=== PATIENT | male | born 2000 | race Caucasian/White ===

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

== ENCOUNTER 2022-06-10 17:02 | Emergency (ER) | payer BC, SELFPAY ==
[2022-06-10 17:05] VITALS: BP 169/84; PULSE 83; RESP 20; TEMP 36.8; O2SAT 100; BMI 41.3
[2022-06-10 17:11] VITALS: BP 169/84; PULSE 87; O2SAT 97
--- NOTE | 2022-06-10 17:17 | XR_ITS ---
PROCEDURE INFORMATION: Exam: XR Right Foot Exam date and time: 06/10/2022 5:26 PM Age: 21 years old Clinical indication: Injury or trauma; Other: Smashed foot with carlift; Blunt trauma; Right TECHNIQUE: Imaging protocol: Radiologic exam of the Right foot. Views: 3 or more views. COMPARISON: CR XR ANKLE RT MIN 3V 10/13/2020 2:32 PM FINDINGS: Bones/joints: There is no evidence of acute fracture or dislocation. Minor degenerative changes involve the 1st MTP joint. Joint spaces appear preserved. Soft tissues: There is minor soft tissue fullness involving the soft tissues of the midfoot, most noted dorsally. No subcutaneous emphysema or radiopaque foreign bodies. IMPRESSION: 1. No acute posttraumatic osseous injury. 2. Mild dorsal midfoot soft tissue edema.
[2022-06-10 17:31] VITALS: BP 158/96; PULSE 104; O2SAT 98
--- NOTE | 2022-06-10 17:34 | PC.NURSE ---
PT GONE TO RADIOLOGY
--- NOTE | 2022-06-10 17:35 | PC.NURSE ---
pt to radiology via wheelchair
--- NOTE | 2022-06-10 17:38 | HMH.EDGENADL ---
Discharge Plan Disposition Patient Disposition: Home, Self-Care Condition: Good Prescriptions Prescriptions: No Action skiguxllknqkfwz-erjglcxjd-HL 118 ML syrup 5 - 10 ml PO Q46H PRN (Reason: Cough) Qty: 200 0RF prednisone 10 MG tablet 10 mg PO BID 3 Days Qty: 6 0RF amoxicillin 500 MG tablet 500 mg PO TID 10 Days Qty: 30 0RF teyhuzafobxbhec-gfglcjnoh-BV 118 ML syrup 5 ml PO Q6HP PRN (Reason: Cough) Qty: 240 0RF Referrals Follow up/Referrals: Eloy Mendoza JR, MD [Physician] - See instructions Robert Sabillon MD [Primary Care Provider] - See instructions Activity Restrictions/Add. Instructions Additional Instructions/Restrictions: You were evaluated in the emergency department today. Please take Tylenol and ibuprofen at home as needed for pain. Rest, ice, and elevate your foot is much as possible. Follow-up outpatient with orthopedics as well as her primary care provider. We are providing you with the contact information for Dr. Mendoza. You may bear weight on your foot as tolerated. Limit activity until your pain is started to improve. Return to the emergency department for any new or worsening symptoms. Clinical Impressions Clinical Impression: Crush injury of right foot Qualifiers: Encounter type: initial encounter Qualified Code(s): S97.81XA - Crushing injury of right foot, initial encounter Instructions Patient Instructions: DI for Foot Pain, DI for Foot Sprain Discharge ED Provider: Charla Guo General Adult HPI General Chief complaint: PAIN Stated complaint: AO02/13@1500 Injured R Foot Time Seen by Provider: 06/10/22 17:22 Mode of Arrival: Ambulatory Source of Information: Patient Limitations: No Limitations Description of Symptoms (Recalled from ER Triage Doc. by RN): PT STATES HE SMASHED HIS R FOOT WITH A CARLIFT AROUND 3PM, REPORTS SOME NUMBNESS ON THE TOP OF HIS FOOT, ABLE TO MOVE TOES, BRUISING NOTED ON TOP OF FOOT History of Present Illness HPI narrative: This patient is a 21-year-old male who denies significant past medical history presenting to the emergency department for evaluation with concern for right foot injury. He states that he smashed his right foot with a cartilage around 3:00 PM. He states that he has pain with ambulating, but he is still able to bear weight. No other injuries noted. His pain is currently a 3 out of 10 and worse at the top and medial aspect of his right foot. No significant numbness or tingling. He was well prior to this. Related Data Previous Rx's Medication Instructions Recorded vdkziimseocywvj-fuoeoooixurpgqa-UX 5 - 10 ml PO Q46H PRN Cough #200 mL 05/10/21 2 mg-30 mg-10 mg/5 mL oral syrup amoxicillin 500 mg tablet 500 mg PO TID 10 days #30 tabs 06/28/21 lkcltiwetqcemlw-kyotkrbklntnitx-GY 5 ml PO Q6HP PRN Cough #240 mL 06/28/21 2 mg-30 mg-10 mg/5 mL oral syrup prednisone 10 mg tablet 10 mg PO BID 3 days #6 tabs 06/28/21 Allergies Allergy/AdvReac Type Severity Reaction Status Date / Time ibuprofen Allergy Verified 12/15/19 22:37 Pertussis Vaccines Allergy Verified 12/15/19 22:37 Sulfa (Sulfonamide Allergy Verified 12/15/19 22:37 Antibiotics) [facility] Disclaimer: The information contained in this section may have been updated after the patient was seen, as this information can be updated by other users. Social History Smoking Status: Never smoker alcohol intake: never current occupational status: other Travel in the last 8 weeks: None household members: family housing: house ROS Obtained: Yes All systems reviewed & no additional complaints except as documented 14 point review of systems obtained and negative except as mentioned in HPI. Physical Exam General General appearance: alert and in no apparent distress Head Head exam: atraumatic and normocephalic Eye Eye exam: Present normal appearance, PERRL and EOMI ENT ENT exam: Pre
--- NOTE | 2022-06-10 17:38 | PC.NURSE ---
pt returned from radiology via wheelchair without complications
--- NOTE | 2022-06-10 18:00 | PC.NURSE ---
Pt lying on ed stretcher with family at BS. Pt watching cell phone, no other needs at this time. Call light within reach
[2022-06-10 18:01] VITALS: BP 157/72; PULSE 77; O2SAT 98
[2022-06-10 18:30] VITALS: BP 157/72; PULSE 84; RESP 18; TEMP 36.8; O2SAT 96
== END 2022-06-10 18:30 | disposition home or self-care (01) ==
PROVIDERS: Emergency Provider Emergency Medicine; PCP Specialist
DX: S97.81XA Crushing injury of right foot, initial encounter (principal); W22.8XXA Striking against or struck by other objects, initial encounter
CPT/HCPCS: 73630; 99283; 99284

== ENCOUNTER → 2022-10-23 07:35 | Outpatient (CLI) | payer BC, SELFPAY ==
--- NOTE | 2022-10-23 | CA_ITS ---
FINAL REPORT TECHNIQUE: Grayscale, color Doppler and duplex Doppler ultrasound of the kidneys, aorta and renal arteries was performed. Multiple velocities were measured. CLINICAL HISTORY: HTN FINDINGS: Aorta velocity: 265 cm/sec Right kidney: 12.1 cm. No evidence of hydronephrosis or mass. Right intrarenal RI: 0.60 Right renal artery velocity: 221 cm/sec. Right RAR (Renal artery-Aortic Ratio): 0.84 Left Kidney: 12.6 cm. No evidence of hydronephrosis or mass. Left intrarenal RI: 0.56 Left renal artery velocity: 249 cm/sec. Left RAR (Renal Artery-Aortic Ratio): 0.94 IMPRESSION: Less than 60% renal artery stenosis. CT angiogram or postcontrast MR angiogram would be more sensitive for evaluation of possible renal artery stenosis. Reviewed, Interpreted and Dictated by Logan Rush III, MD Transcribed by Chelsie Judd Authenticated and . [facility]
== END ==
PROVIDERS: PCP Nurse Practitioner Family; Visit Provider Nurse Practitioner Family
DX: I10 Essential (primary) hypertension (principal)
CPT/HCPCS: 93976

== ENCOUNTER → 2022-10-30 14:21 | Outpatient (CLI) | payer BC, SELFPAY | PROVIDERS: PCP Nurse Practitioner Family; Visit Provider Internal Medicine | DX: I10 Essential (primary) hypertension (principal); G45.9 Transient cerebral ischemic attack, unspecified | CPT/HCPCS: 93225; 93226; 93306 ==

== ENCOUNTER → 2022-11-01 19:26 | Outpatient (CLI) | payer BC, SELFPAY | PROVIDERS: PCP Nurse Practitioner Family; Visit Provider Internal Medicine | DX: I10 Essential (primary) hypertension (principal); G45.8 Other transient cerebral ischemic attacks and related syndromes; R94.31 Abnormal electrocardiogram [ECG] [EKG] | CPT/HCPCS: 93225; 93226 ==

== ENCOUNTER → 2022-11-07 12:06 | Outpatient (CLI) | payer BC, SELFPAY ==
[2022-11-07 12:07] LABS: Blood Urea Nitrogen 14 mg/dl (9-20); Estimated Glomerular Filt Rate 109 ml/min (>60); GFR (African American) 132 ML/MIN (>60)
[2022-11-07 13:04] VITALS: BP 138/55; PULSE 72; RESP 18; O2SAT 99
== END ==
PROVIDERS: PCP Nurse Practitioner Family; Visit Provider Internal Medicine
DX: I10 Essential (primary) hypertension (principal)
CPT/HCPCS: 36415; 82565; 84520

== ENCOUNTER → 2022-11-14 14:12 | Outpatient (CLI) | payer BC, SELFPAY | LOC: RT 14:13 | PROVIDERS: PCP Nurse Practitioner Family; Visit Provider Internal Medicine | DX: I10 Essential (primary) hypertension; G45.9 Transient cerebral ischemic attack, unspecified; R94.31 Abnormal electrocardiogram [ECG] [EKG] | CPT/HCPCS: 93225 ==

== ENCOUNTER 2022-11-19 10:58 | Day surgery (SDC) | payer BC, SELFPAY ==
[2022-11-18 14:03] VITALS: BMI 41.4
[2022-11-19] VITALS (12 sets, daily range): BP systolic 110–170; BP diastolic 34–72; PULSE 53–80; RESP 16–18; TEMP 36.7–37.2; O2SAT 94–99
--- NOTE | 2022-11-19 11:40 | CA_ITS ---
APPROVED REPORT EXAM: Comprehensive 2D, Doppler, and color-flow Echocardiogram Electronic Science Teacher: RT Connor(R) Ht: 5 ft 9 in Wt: 298lbs BSA: 2.45 BP: 128/68 mmHg Rhythm: NSR Indications: sycnope, HTN, TIA, abn EKG, obesity Echo Enhancing Agent Indication: Stroke Procedure After obtaining informed consent, patient underwent transesophageal echo in the [facility]. Type of Sedation : Monitored anesthesia care Sedation was administered by Shaista Almendarez C.R.N.A. Sedation start time: 13:12 Case end Time: 13:28 Sedation was achieved intravenously with: Versed (2 mg) Transesophageal probe was inserted and advanced into esophagus without difficulty by Dr. Dre Duke. The FLO was performed without complications. Throughout the procedure, the blood pressure, pulse oximetry, cardiac rhythm, and rate were monitored. The patient tolerated the procedure without adverse effects. Recovery from conscious sedation was uneventful and vital signs were stable. Left Ventricle The left ventricle is normal size. The left ventricular systolic function is normal. The left ventricular ejection fraction is within the normal range. There is normal LV segmental wall motion. LVEF is 55-60%. Right Ventricle The right ventricle is normal size. The right ventricular systolic function is normal. Atria The left atrium size is normal. There is no mass suspected in the left atrium. No thrombus is visualized in the left atrium or appendage. Right atrium size is normal. Prominent Eustachian valve is noted in the right atrium.There is an incidental finding of a high turbulent flow from the IVC into the RA. The interatrial septum is intact with no evidence for an atrial septal defect. Saline bubble contrast intravenous injection does not demonstrate PFO. Aortic Valve The aortic valve is trileaflet. The aortic valve is normal in structure. The aortic valve opens well. No aortic regurgitation is present. Mitral Valve The mitral valve is normal in structure. No evidence of mitral valve stenosis. There is trace mitral valve regurgitation. There is no evidence of mitral valve vegetations. Tricuspid Valve The tricuspid valve leaflets are thin and pliable. There is mild tricuspid regurgitation. RVSP is normal. Pulmonic Valve The pulmonary valve is normal in structure. There is trace pulmonic valvular regurgitation. Great Vessels The aortic root is normal in size. The ascending aorta is normal in size. Descending aorta is normal in caliber. Pericardium There is no pericardial effusion. Other Information Study Quality: Adequate Conclusion Normal biventricular systolic function. No evidence of masses or vegetations. Interatrial septum appears intact. Agitated saline study demonstrates no evidence of interatrial shunts. Incidental finding of increased turbulent high flow from the IVC into the RA. Electronically signed by : Purnima Duke, 11/19/2022 15:37:58
--- NOTE | 2022-11-19 11:45 | P.PNANES_ITS ---
[facility] Disclaimer: The information contained in this section may have been updated after the patient was seen, as this information can be updated by other users. Medical History (Updated 11/18/22 @ 14:03 by Minnie Marrufo RN) Collar bone fracture History of COVID-19 History of seizure Hypertension Migraine Family History (Updated 11/18/22 @ 13:56 by Minnie Marrufo RN) Other No significant family history Social History (Updated 11/18/22 @ 13:58 by Minnie Marrufo RN) Smoking Status: Never smoker alcohol intake: never substance use type: denies use current occupational status: unemployed Travel in the last 8 weeks: None household members: family housing: house [facility] Anesthesia Checklist Patient Identification Patient Identification: Arm Band Structural Data Admitted From: Home Planned Operative Procedure/s: FLO Consent for Planned Operative Procedure(s) Verified: Yes Verified Documents: Surgical Consent and History and Physical NPO Status Verified Time NPO: 09:00 (water) Additional verifications Anesthesia Reactions: No Airway Assessment C-Spine Mobility Assessed: Yes TMJ Mobility Assessed: Yes Dentition: Good Dentition Neurological Assessment Level of Consciousness: Awake and Alert Anesthesia Plan Anesthesia Risk discussed: Yes Anesthesia Plan: Verified ASA Class: II Anesthesia Type: MAC
== END 2022-11-19 15:44 | disposition home or self-care (01) ==
PROVIDERS: PCP Nurse Practitioner Family; Referring Provider Internal Medicine; Visit Provider Internal Medicine
DX: R55 Syncope and collapse (principal); G45.9 Transient cerebral ischemic attack, unspecified; I10 Essential (primary) hypertension; I74.9 Embolism and thrombosis of unspecified artery; R06.83 Snoring; R94.31 Abnormal electrocardiogram [ECG] [EKG]; Z86.16 Personal history of COVID-19; Z79.899 Other long term (current) drug therapy
CPT/HCPCS: 75574; 93312; J2704; Q9967

== ENCOUNTER → 2022-12-05 10:30 | Outpatient (CLI) | payer BC, SELFPAY ==
--- NOTE | 2022-12-05 10:33 | CA_ITS ---
FINAL REPORT TECHNIQUE: Color Doppler, duplex Doppler and sheets scale sonography of the bilateral neck arterial vasculature was performed. Velocities were measured in the carotid arteries. Stenosis evaluation based on the validated velocity criteria. CLINICAL HISTORY: tia symptoms/htn/abnl ecg FINDINGS: The peak systolic velocity of the right common carotid artery is 296 cm/s. The peak systolic velocity of the right internal carotid artery is 115 cm/s and end diastolic velocity 28 cm/s. A small amount of plaque is present. The right external carotid artery is patent. The right vertebral artery is patent with antegrade flow. The peak systolic velocity of the left common carotid artery is 129 cm/s. The peak systolic velocity of the left internal carotid artery is 117 cm/s and end diastolic velocity 36 cm/s. A small amount of plaque is present. The left external carotid artery is patent.The left vertebral artery is patent with antegrade flow. IMPRESSION: Elevated velocity of the right common carotid artery of uncertain etiology. Bilateral patent vertebral arteries with antegrade flow. If indicated, CTA or MRA could further evaluate. Reviewed, Interpreted and Dictated by Logan Rush III, MD Transcribed by Tomasa Ospina Authenticated and . [facility]
== END ==
PROVIDERS: PCP Nurse Practitioner Family; Visit Provider Internal Medicine
DX: G45.8 Other transient cerebral ischemic attacks and related syndromes (principal); I10 Essential (primary) hypertension; R94.31 Abnormal electrocardiogram [ECG] [EKG]; I70.1 Atherosclerosis of renal artery; I74.9 Embolism and thrombosis of unspecified artery
CPT/HCPCS: 93880

== ENCOUNTER → 2022-12-06 15:27 | Outpatient (CLI) | payer BC, SELFPAY | PROVIDERS: PCP Nurse Practitioner Family; Visit Provider Internal Medicine | DX: G47.30 Sleep apnea, unspecified (principal); I10 Essential (primary) hypertension; R06.83 Snoring | CPT/HCPCS: G0399 ==

== ENCOUNTER → 2022-12-16 16:28 | Outpatient (CLI) | payer BC, SELFPAY | PROVIDERS: PCP Nurse Practitioner Family; Visit Provider Physician Assistant | DX: I49.9 Cardiac arrhythmia, unspecified (principal) | CPT/HCPCS: 93270 ==